=== PATIENT | female | born 1955 | race Asian ===

== ENCOUNTER → 2017-10-31 | Outpatient (CLI) | payer MEDICAID | LOC: FIMAGING 10:32 | PROVIDERS: ATTEND Family Medicine | DX: Z13.820 Encounter for screening for osteoporosis (principal); M81.0 Age-related osteoporosis without current pathological fracture; Z78.0 Asymptomatic menopausal state; E78.2 Mixed hyperlipidemia; I10 Essential (primary) hypertension ==